=== PATIENT | female | born 1940 | race Caucasian/White ===

== ENCOUNTER → 2016-03-03 | Outpatient (CLI) | payer OTHER ==
[2016-03-03 15:51] LABS: BASOPHILS # (AUTO) 0.03 10*3/UL; BASOPHILS % (AUTO) 0.4 % (0-1); EOSINOPHILS % (AUTO) 2.7 % (0-8); HEMATOCRIT 34.9 % (37.0-47.0); HEMOGLOBIN 11.2 g/dL (12.0-16.0); IMM GRAN % (AUTO) 0.1 % (0-5); IMM GRAN# (AUTO) 0.01 10*3/UL; LYMPHOCYTES # (AUTO) 1.97 10*3/uL; LYMPHOCYTES % (AUTO) 27.7 % (10-50); MEAN CORPUSCULAR HEMOGLOBIN 29.9 PG (27-31); MEAN CORPUSCULAR HGB CONC 32.1 g/dL (33-37); MEAN PLATELET VOLUME 9.6 FL (7.4-12.2); MONOCYTES # (AUTO) 0.74 10*3/UL (0.3-0.8); MONOCYTES % (AUTO) 10.4 % (5-15); NEUTROPHILS # (AUTO) 4.17 10*3/UL; NEUTROPHILS % (AUTO) 58.7 % (50-80); RDW COEFFICIENT OF VARIATION 15.5 % (11.5-14.5); RED BLOOD COUNT 3.75 10^6/uL (4.20-5.40); WHITE BLOOD COUNT 7.11 10^3/uL (4.8-10.8)
[2016-03-03 15:54] LABS: PLATELET MORPHOLOGY COMMENT NORMAL MORPHOLOGY (NORM)
[2016-03-03 16:22] LABS: PROTHROMBIN TIME 27.2 secs (9.7-11.4)
== END ==
LOC: LAB 15:30
PROVIDERS: ATTEND Internal Medicine
DX: I48.2 Chronic atrial fibrillation (principal); D50.9 Iron deficiency anemia, unspecified
CPT/HCPCS: 36415; 82728; 83540; 83550; 85025; 85610

== ENCOUNTER → 2016-04-20 | Outpatient (CLI) | payer OTHER ==
[2016-04-20 10:08] LABS: PROTHROMBIN TIME 31.4 secs (9.7-11.4)
== END ==
LOC: LAB 09:35
PROVIDERS: ATTEND Internal Medicine Cardiovascular Disease
DX: I48.2 Chronic atrial fibrillation (principal)
CPT/HCPCS: 36415; 85610

== ENCOUNTER → 2016-04-27 | Outpatient (CLI) | payer OTHER ==
[2016-04-27 12:17] LABS: BASOPHILS # (AUTO) 0.04 10*3/UL; BASOPHILS % (AUTO) 0.6 % (0-1); EOSINOPHILS % (AUTO) 2.1 % (0-8); HEMATOCRIT 36.3 % (37.0-47.0); HEMOGLOBIN 11.4 g/dL (12.0-16.0); IMM GRAN % (AUTO) 0 % (0-5); IMM GRAN# (AUTO) 0 10*3/UL; LYMPHOCYTES # (AUTO) 1.39 10*3/uL; LYMPHOCYTES % (AUTO) 22.2 % (10-50); MEAN CORPUSCULAR HEMOGLOBIN 29.2 PG (27-31); MEAN CORPUSCULAR HGB CONC 31.4 g/dL (33-37); MEAN PLATELET VOLUME 9.3 FL (7.4-12.2); MONOCYTES # (AUTO) 0.62 10*3/UL (0.3-0.8); MONOCYTES % (AUTO) 9.9 % (5-15); NEUTROPHILS # (AUTO) 4.09 10*3/UL; NEUTROPHILS % (AUTO) 65.2 % (50-80); RDW COEFFICIENT OF VARIATION 14.1 % (11.5-14.5); WHITE BLOOD COUNT 6.27 10^3/uL (4.8-10.8)
[2016-04-27 13:18] LABS: PERCENT IRON SATURATION 17.23 % (14-50)
[2016-04-27 13:29] LABS: PLATELET MORPHOLOGY COMMENT NORMAL MORPHOLOGY (NORM)
== END ==
LOC: LAB 11:55
PROVIDERS: ATTEND Internal Medicine
DX: D50.9 Iron deficiency anemia, unspecified (principal)
CPT/HCPCS: 36415; 82728; 83540; 83550; 85025

== ENCOUNTER → 2016-06-05 | Outpatient (CLI) | payer OTHER | LOC: LAB 15:28 | PROVIDERS: ATTEND Internal Medicine Cardiovascular Disease | DX: I48.2 Chronic atrial fibrillation (principal) | CPT/HCPCS: 36415; 85610 ==

== ENCOUNTER → 2016-06-08 | Outpatient (CLI) | payer OTHER | LOC: MMPC 11:11 | PROVIDERS: ATTEND Internal Medicine | DX: E11.9 Type 2 diabetes mellitus without complications (principal); D64.9 Anemia, unspecified; I48.91 Unspecified atrial fibrillation; E78.5 Hyperlipidemia, unspecified | CPT/HCPCS: 99214; G0463 ==

== ENCOUNTER → 2016-06-17 | Outpatient (CLI) | payer OTHER | LOC: LAB 12:20 | PROVIDERS: ATTEND Internal Medicine Cardiovascular Disease | DX: I48.2 Chronic atrial fibrillation (principal) | CPT/HCPCS: 36415; 85610 ==

== ENCOUNTER → 2016-06-24 | Outpatient (CLI) | payer OTHER ==
[2016-06-24 11:34] LABS: BASOPHILS # (AUTO) 0.03 10*3/UL; BASOPHILS % (AUTO) 0.5 % (0-1); EOSINOPHILS % (AUTO) 3.4 % (0-8); HEMATOCRIT 36.1 % (37.0-47.0); HEMOGLOBIN 11.4 g/dL (12.0-16.0); LYMPHOCYTES # (AUTO) 1.23 10*3/uL; MEAN CORPUSCULAR HEMOGLOBIN 29.5 PG (27-31); MEAN CORPUSCULAR HGB CONC 31.6 g/dL (33-37); MEAN CORPUSCULAR VOLUME 93.3 FL (81-99); MEAN PLATELET VOLUME 9.5 FL (7.4-12.2); MONOCYTES # (AUTO) 0.36 10*3/UL (0.3-0.8); MONOCYTES % (AUTO) 6.1 % (5-15); NEUTROPHILS # (AUTO) 4.05 10*3/UL; NEUTROPHILS % (AUTO) 68.9 % (50-80); RED BLOOD COUNT 3.87 10^6/uL (4.20-5.40)
[2016-06-24 11:35] LABS: PLATELET MORPHOLOGY COMMENT NORMAL MORPHOLOGY (NORM); RBC MORPHOLOGY COMMENT NORMAL MORPHOLOGY (NORM); WBC MORPHOLOGY COMMENT NORMAL MORPHOLOGY (NORM)
== END ==
LOC: LAB 11:12
PROVIDERS: ATTEND Internal Medicine
DX: I48.2 Chronic atrial fibrillation (principal); D50.0 Iron deficiency anemia secondary to blood loss (chronic)
CPT/HCPCS: 36415; 82728; 83540; 83550; 85025; 85610

== ENCOUNTER 2016-07-16 07:52 | Emergency (ER) | payer OTHER ==
[2016-07-16] MEDS ORDERED: ONDANSETRON 4 MG/2 ML VIAL IVP ONE (08:14)
[2016-07-16] MEDS ORDERED: KETOROLAC 15 MG/1 ML VIAL IVP ONE (08:14)
[2016-07-16] MEDS ORDERED: oxyCODONE-ACETAMINOPHEN 5-325 TAB PO ONE (08:14)
[2016-07-16] MEDS ORDERED: NORMAL SALINE 10 ML SYRINGE FLUSH IVP PRN (08:14)
--- NOTE | 2016-07-16 08:21 | PDOC ---
Upper Extremity Problem HPI - General Chief Complaint: Upper Extremity Problem/Injury Stated Complaint: L WRIST PAIN, NO KNOWN INJURY Date Seen by Provider: 07/16/16 Time Seen by Provider: 08:16 - History of Present Illness Initial Comments: Patient's very nice 76-year-old woman who presents to the emergency department with intense left wrist pain. She has some mild swelling in that wrist but is unable to move it really at all secondary to pain. She's had this happen about 3 times in the past and has had a evaluated in the emergency department and was even admitted for wants with no clear sign of infection or no evidence of gout or pseudogout or anything else. She does not think she's ever had her wrist joint aspirated. She states that once her pains under control is usually last about a day or 2 minutes gone and she feels fine after that. She has no idea what has been causing this. She has never seen orthopedics for it. She denies any fever or chills. She believes she's had uric acid taken in the past and has been normal. She would like to have this treated in regards to making her more comfortable does not want to have a lot of other tests or instrumentation as she does not believe there is anything else going to come of it. - Patient Home Medications Home Medications: Home Medications Aspirin [Aspirin EC] 81 mg PO DAILY 02/07/13 Furosemide [Lasix] 1 - 2 tab PO QD PRN #90 tab 08/03/14 Potassium Chloride 1 cap PO QD PRN #90 cap 08/03/14 Digoxin [Digox] 1 tab PO DAILY #90 tab 07/29/15 Diltiazem HCl [Diltiazem 24hr Er] 1 cap PO DAILY #90 cap 07/29/15 Isosorbide Mononitrate [Isosorbide Mononitrate Er] 1 tab PO DAILY #90 tab Lisinopril 1 tab ORAL QD #90 tab 09/23/15 Metoprolol Tartrate 0.5 tab PO BID #90 tab 09/23/15 Pantoprazole Sodium [Protonix] 1 tab PO BID #180 tab 09/23/15 Warfarin Sodium [Coumadin] 5 mg PO DAILY #90 tab 09/23/15 Rosuvastatin Calcium [Crestor] 1 tab ORAL QHS #90 tab 12/19/15 Sertraline HCl 1 tab PO DAILY #90 tab 01/01/16 Blood Sugar Diagnostic [Freestyle Lite Strips] 1 each IN QD #90 strip 06/08/16 Docusate Sodium [Colace] 2 cap PO QD cap 06/08/16 Ferrous Sulfate, Dried [Iron] 3 tab PO QD tab 06/08/16 Lancets 1 each MC QD #90 each 06/08/16 Metformin HCl 1 tab PO BID #180 tab 06/08/16 Ondansetron Odt [Zofran Odt] 8 mg PO Q6H PRN PRN #10 tab.rapdis 07/16/16 Oxycodone HCl 10 mg PO Q4H PRN #20 tab 07/16/16 - Patient Allergies Allergies/Adverse Reactions: Allergies Allergy/AdvReac Type Severity Reaction Status Date / Time sulfamethoxazole AdvReac Intermediate NAUSEA Verified 07/16/16 08:20 [From Bactrim] trimethoprim [From Bactrim] AdvReac Intermediate NAUSEA Verified 07/16/16 08:20 Past Medical History - heen HEENT History: Denies History Cardiovascular History: Hypertension, CAD, Arrhythmia, Hyperlipidemia Additional Cardiovasular History: A FIB Respiratory History: COPD, Sleep Apnea Gastrointestinal History: GERD Genitourinary History: Denies History Endocrine History: Type 2 Diabetes (oral) Musculoskeletal History: Denies History Prosthesis or Implant: No Neurological History: Migraines Blood Disorders: Anemia Psychiatric History: Denies History History of Sexually Transmitted Diseases: No Cancer History: Breast History of MDRO: No History of Other Communicable Diseases: No Alcohol Use: Rarely Substance Use Type: None Previous Surgical History: No Type / Date of Surgery: JAMMIE/ COLONOSCOPY/C SECTION X1/LEFT BREAST LUMPECTOMYC- section Anesthesia Reactions: No Malignant Hyperthermia: No Significant Family History: No pertinent family hx Past Medical History Reviewed: Reviewed - No Changes ROS - Limitations ROS Limitations: No Limitations Constitution: REPORTS: Denies Symptoms Cardiovascular: REPORTS: Denies Cardiac Symptoms Respiratory: REPORTS: Denies Resp Symptoms Upper Extremity Problem Exam - General Appearance General Appearance: POSITIVE: Alert, Cooperative, No Acute Distress - Upper Extremity Upper Extremity: POSITIVE: Other (The left wrist is mildly swollen and is tender right at the distal end of both the radius and ulna where it articulates with the hand bones. She has exquisite tenderness with palpation there is reluctant to flex or extend that wrist at all. There is no evidence of bruising or trauma or any sort of injury there. There is no bony deformity at all.) Upper Ext Problem Progress - Results Reviewed by me Lab Results Reviewed: Yes - Patient's Progress MDM / ED Course: This patient came in with a significantly tender left wrist. She's had this multiple times in the past she's actually been seen by orthopedist in the past for it once was admitted to the hospital for pain control all of these time she had no significant etiology identified. She had had uric acid levels and multiple other studies taken in the past without clear reason for this pain cycle. In the past they have lasted about 2 days and she is needed some narcotic pain medicine to deal with the pain and then they go away. I have offered her here today to try to aspirate this joint or do a more thorough lab workup including sedimentation rate CRP and possibly even inflammatory markers for rheumatoid or other autoimmune diseases but she does not wish to go forward with any aggressive workup. She simply wants some medication to help her feel better and to go home. She is willing to see an orthopedist in the outpatient setting again. Here in the emergency department she was given a dose of IV Toradol and 2 Percocet tablets. She states that her pain is much more tolerable currently. I placed her in a short arm splint and asked her to ice the joint intermittently through the day today and tomorrow. I've asked her to follow-up with orthopedist today if at all possible for consideration of joint aspiration. She is also to follow-up with her primary care provider in the near future as well. Patient Care Time - Estimated PCT Patient Care Time (In Minutes): 35 Vital Signs - Recent Vital Signs Vital Signs: Vital Signs (Last 8 hours) Temp Pulse Resp BP Pulse Ox 07/16/16 07:53 96.8 F 72 16 146/87 97 - VS Reviewed Vital Signs Reviewed: Yes (vitals are benign) Discharge Clinical Impression: Wrist pain, acute Qualifiers: Laterality: left Qualifier Code: (M25.532) Pain in left wrist Discharge Disposition: Discharged to Home Condition: Stable Prescriptions / Orders: Ondansetron Odt [Zofran Odt] 8 mg PO Q6H PRN PRN #10 tab.rapdis PRN Reason: Nausea / Vomiting Oxycodone HCl 10 mg PO Q4H PRN #20 tab PRN Reason: Pain Patient Instructions Given at Discharge: Arthralgia (ED) Additional Instructions: Follow-up with orthopedics today or tomorrow at all possible for evaluation of your wrist Follow-up with primary care provider in the next couple of days as well to discuss your relapsing condition Use pain medication sparingly and avoid driving or any other dangerous situations while you're using pain medication Return here if you have fever or any obvious worsening or any other concerns. Follow Up With: PIETER BAKER [Primary Care Provider] -
[2016-07-16 08:48] LABS: BASOPHILS # (AUTO) 0.03 10*3/UL; BASOPHILS % (AUTO) 0.5 % (0-1); EOSINOPHILS # (AUTO) 0.09 10*3/UL; EOSINOPHILS % (AUTO) 1.4 % (0-8); HEMATOCRIT 35.1 % (37.0-47.0); HEMOGLOBIN 10.9 g/dL (12.0-16.0); LYMPHOCYTES # (AUTO) 1.22 10*3/uL; MEAN CORPUSCULAR HEMOGLOBIN 29.1 PG (27-31); MEAN CORPUSCULAR HGB CONC 31.1 g/dL (33-37); MEAN CORPUSCULAR VOLUME 93.6 FL (81-99); MONOCYTES # (AUTO) 0.64 10*3/UL (0.3-0.8); MONOCYTES % (AUTO) 10.1 % (5-15); NEUTROPHILS # (AUTO) 4.37 10*3/UL; NEUTROPHILS % (AUTO) 68.6 % (50-80); RED BLOOD COUNT 3.75 10^6/uL (4.20-5.40)
[2016-07-16 08:49] VITALS: RESP 16; TEMP 96.8
[2016-07-16 09:12] LABS: PLATELET MORPHOLOGY COMMENT NORMAL MORPHOLOGY (NORM); RBC MORPHOLOGY COMMENT NORMAL MORPHOLOGY (NORM); WBC MORPHOLOGY COMMENT NORMAL MORPHOLOGY (NORM)
== END 2016-07-16 09:28 | disposition home or self-care (01) ==
LOC: ER 07:52
DX: M25.532 Pain in left wrist (principal); E11.9 Type 2 diabetes mellitus without complications; I11.9 Hypertensive heart disease without heart failure; I48.91 Unspecified atrial fibrillation; E78.5 Hyperlipidemia, unspecified; Z79.01 Long term (current) use of anticoagulants
CPT/HCPCS: 85025; 85610; 96374; 96375; 99282; 99283; J1885; J2405

== ENCOUNTER 2016-07-16 21:29 | Emergency (ER) | payer OTHER ==
[2016-07-16] MEDS ORDERED: GABAPENTIN 300 MG CAPSULE PO ONE (21:50)
[2016-07-16] MEDS ORDERED: MORPHINE SULFATE 4 MG/1 ML ONE (21:51)
[2016-07-16] MEDS ORDERED: predniSONE Tab 20 MG TAB PO ONE ×2 (22:16→22:43)
[2016-07-16] MEDS ORDERED: LORazepam 2 MG/1 ML VIAL IM ONE (23:05)
[2016-07-16] MEDS ORDERED: KETOROLAC 30 MG/1 ML VIAL IM ONE (23:06)
[2016-07-16] MEDS ORDERED: KETOROLAC 30 MG/1 ML VIAL ONE (23:14)
[2016-07-16] MEDS ORDERED: LORazepam 2 MG/1 ML VIAL ONE (23:15)
[2016-07-17] MEDS ORDERED: HYDROmorphone 2 MG TABLET PO SCH (00:30)
[2016-07-17] MEDS ORDERED: HYDROmorphone 2 MG TABLET PO ONE (00:36)
--- NOTE | 2016-07-17 00:44 | PDOC ---
Upper Extremity Problem HPI - General Chief Complaint: Upper Extremity Problem/Injury Stated Complaint: LEFT WRIST PAIN Date Seen by Provider: 07/17/16 Time Seen by Provider: 22:00 Source: POSITIVE: Patient Exam Limitations: POSITIVE: No limitations Nurse's Notes Reviewed & Considered: Yes - History of Present Illness Initial Comments: The patient is a 76-year-old female who is evaluated with chief complaint of left wrist pain. She states that she had onset of wrist pain earlier this morning. She was seen here in the emergency department this morning and had normal CBC and an INR measuring 1.79. She has had similar flareups of left- sided wrist pain on 2 other occasions, the last time was in 2013. She previously had been tested for gout and autoimmune problems and no definitive cause was ever determined. She had responded previously to treatment with steroids with improvement after a couple of days. This morning she was given Toradol and Percocet with improvement of pain and was discharged home on oxycodone. She does take Coumadin for atrial fibrillation. She states that this evening her pain returned and has been unrelieved after taking several doses of oxycodone. She denies any fevers or chills, any other associated joint pain or swelling, any other associated symptoms. She denies any recent injury. She is diabetic and has had some occasional numbness and tingling in her hands and feet previously. - Patient Home Medications Home Medications: Home Medications Aspirin [Aspirin EC] 81 mg PO DAILY 02/07/13 Furosemide [Lasix] 1 - 2 tab PO QD PRN #90 tab 08/03/14 Potassium Chloride 1 cap PO QD PRN #90 cap 08/03/14 Digoxin [Digox] 1 tab PO DAILY #90 tab 07/29/15 Diltiazem HCl [Diltiazem 24hr Er] 1 cap PO DAILY #90 cap 07/29/15 Isosorbide Mononitrate [Isosorbide Mononitrate Er] 1 tab PO DAILY #90 tab Lisinopril 1 tab ORAL QD #90 tab 09/23/15 Metoprolol Tartrate 0.5 tab PO BID #90 tab 09/23/15 Pantoprazole Sodium [Protonix] 1 tab PO BID #180 tab 09/23/15 Warfarin Sodium [Coumadin] 5 mg PO DAILY #90 tab 09/23/15 Rosuvastatin Calcium [Crestor] 1 tab ORAL QHS #90 tab 12/19/15 Sertraline HCl 1 tab PO DAILY #90 tab 01/01/16 Blood Sugar Diagnostic [Freestyle Lite Strips] 1 each IN QD #90 strip 06/08/16 Docusate Sodium [Colace] 2 cap PO QD cap 06/08/16 Ferrous Sulfate, Dried [Iron] 3 tab PO QD tab 06/08/16 Lancets 1 each MC QD #90 each 06/08/16 Metformin HCl 1 tab PO BID #180 tab 06/08/16 Ondansetron Odt [Zofran Odt] 8 mg PO Q6H PRN PRN #10 tab.rapdis 07/16/16 Oxycodone HCl 10 mg PO Q4H PRN #20 tab 07/16/16 HYDROmorphone Tab [Dilaudid Tab] 2 mg PO Q4H PRN #10 tablet 07/17/16 predniSONE Tab [Deltasone Tab] 40 mg PO DAILY #10 tab 07/17/16 - Patient Allergies Allergies/Adverse Reactions: Allergies Allergy/AdvReac Type Severity Reaction Status Date / Time sulfamethoxazole AdvReac Intermediate NAUSEA Verified 07/16/16 08:20 [From Bactrim] trimethoprim [From Bactrim] AdvReac Intermediate NAUSEA Verified 07/16/16 08:20 Past Medical History - heen HEENT History: Denies History Cardiovascular History: Hypertension, CAD, Arrhythmia, Hyperlipidemia Additional Cardiovasular History: A FIB Respiratory History: COPD, Sleep Apnea Gastrointestinal History: GERD Genitourinary History: Denies History Endocrine History: Type 2 Diabetes (oral) Musculoskeletal History: Denies History Prosthesis or Implant: No Neurological History: Migraines Blood Disorders: Anemia Psychiatric History: Denies History History of Sexually Transmitted Diseases: No Cancer History: Breast History of MDRO: No History of Other Communicable Diseases: No Alcohol Use: Rarely Substance Use Type: None Previous Surgical History: No Type / Date of Surgery: JAMMIE/ COLONOSCOPY/C SECTION X1/LEFT BREAST LUMPECTOMYC- section Anesthesia Reactions: No Malignant Hyperthermia: No Significant Family History: No pertinent family hx Past Medical History Reviewed: Reviewed - No Changes ROS - Limitations ROS Limitations: No Limitations Constitution: DENIES: Chills, Fever Cardiovascular: REPORTS: Denies Cardiac Symptoms Respiratory: REPORTS: Denies Resp Symptoms Neurological: REPORTS: Tingling (Fingertips) Gastrointestinal: REPORTS: Denies GI Symptoms Musculoskeletal: REPORTS: Denies MS Symptoms Eyes: REPORTS: Denies Symptoms ENT: REPORTS: Denies Symptoms Upper Extremity Problem Exam - General Appearance General Appearance: POSITIVE: Alert, Cooperative, No Acute Distress - Upper Extremity Upper Extremity: POSITIVE: Other (Examination of the left wrist reveals some minimal swelling, no evidence of erythema or bruising, pain with any range of motion at the wrist, normal cap refill and sensation in the fingertips) Vascular: POSITIVE: No Vascular Compromise - Skin Skin: POSITIVE: Normal Color, No Rash - Neuro / Psych Peripheral Neuro Exam: POSITIVE: Sensation Normal, Motor Normal - HEENT HEENT: POSITIVE: Head Inspection Nml - Respiratory / CVS Respiratory / CVS: POSITIVE: No Respiratory Distress, Breath Sounds Normal, Regular Rate & Rhythm, Heart Sounds Normal Upper Ext Problem Progress - Results Reviewed by me Xrays/CTs/US Reviewed by me: Yes Radiology Findings: X-ray of the left wrist reveals some mild degenerative changes with no evidence of acute fracture or any other abnormal findings Lab Results Reviewed: Yes Lab Results:: Laboratory Results 07/16/16 Range/Units 22:35 Uric Acid 6.1 (2.5-7.5) mg/dl C-Reactive Protein 4.5 H (0.0-0.9) mg/dL - Patient's Progress MDM / ED Course: Initially the patient was given Neurontin 300 mg by mouth and morphine 4 mg IM. She did not really have any significant pain relief after approximately an hour. She was still rating her pain a 10 out of 10. She subsequently was given Ativan 1 mg IM and Toradol 30 mg IM. Her pain level had come down to about a 7.4 out of 10. She did have a an elevated CRP of 4.1 with a normal uric acid at 6.1. Rheumatoid factor and AKHIL were sent. At this point is unclear what exactly is causing the pain. It is possible this may represent some type of autoimmune arthropathy versus pseudogout versus neuropathy of some kind. She was started on prednisone and was given a dose of 40 mg here in the emergency room. She will continue 40 mg daily for 5 days. This is what seemed to have helped her in the past it sounds like. She was given Dilaudid as needed for severe breakthrough pain. She is advised return to the emergency room if increased pain, increased swelling, fever, any worsening or change in symptoms. She is advised follow-up with her primary care provider early next week. She was advised that she may require referral to a supervisor boarding. - Consult Counseled: POSITIVE: Patient, Family, RE: Lab Results, RE: Radiology Results, RE : DX, RE: Need for F/U Patient Care Time - Estimated PCT Patient Care Time (In Minutes): 35 Vital Signs - VS Reviewed Vital Signs Reviewed: Yes (written nursing documentation reviewed) Discharge Clinical Impression: Wrist pain, acute Discharge Disposition: Discharged to Home Condition: Stable Prescriptions / Orders: predniSONE Tab [Deltasone Tab] 40 mg PO DAILY #10 tab HYDROmorphone Tab [Dilaudid Tab] 2 mg PO Q4H PRN #10 tablet PRN Reason: Pain Patient Instructions Given at Discharge: Arthralgia (ED) Additional Instructions: The exact cause of your current pain is unclear however may represent some form of pseudogout or some type of autoimmune problem. It is also possible that this could be some type of neuropathy related to your diabetes. Recommend the wrist splint for comfort. Recommend the prednisone 40 mg daily for 5 days which is a strong anti-inflammatory. In addition he will been prescribed allotted 2 mg every 4 hours as needed for pain. Return to the emergency room if increased pain or swelling, fevers or chills, any worsening or change in symptoms. Some specialized blood work to test for autoimmune issues was sent out and should be available early next week. Recommend follow-up with primary care in 5 days. Follow Up With: PIETER BAKER [Primary Care Provider] -
[2016-07-17 02:35] VITALS: RESP 18; TEMP 98
--- NOTE | 2016-07-17 09:07 | DI ---
LEFT WRIST, 07/16/2016 10:06 PM: Clinical History: Left wrist pain. Previous Exam: None at this facility. 3 views are submitted. There is no acute soft tissue, osseous, or joint abnormality. There is osteopo rosis as well as calcification of the triangular fibrocartilage indicating chondrocalcinosis. Reading: No acute fracture or dislocation is present. Chondrocalcinosis.
[2016-07-21 12:37] LABS: RHEUMATOID FACTOR <15 IU/mL (<15)
== END 2016-07-17 00:40 | disposition home or self-care (01) ==
LOC: ER 21:29
DX: M25.532 Pain in left wrist (principal); I11.9 Hypertensive heart disease without heart failure; I25.10 Atherosclerotic heart disease of native coronary artery without angina pectoris; I48.91 Unspecified atrial fibrillation; E11.9 Type 2 diabetes mellitus without complications; Z79.01 Long term (current) use of anticoagulants
CPT/HCPCS: 73110; 84550; 86039; 86140; 86431; 96372; 99283 ×2; J1885; J7512; J2060; J2270

== ENCOUNTER → 2016-07-22 | Outpatient (CLI) | payer OTHER | LOC: MOB LAB 15:46 | PROVIDERS: ATTEND Internal Medicine | DX: M25.532 Pain in left wrist (principal); M25.432 Effusion, left wrist; M11.232 Other chondrocalcinosis, left wrist | CPT/HCPCS: 36415; 85652; 86038 ==

== ENCOUNTER → 2016-07-27 | Outpatient (CLI) | payer OTHER | LOC: MMPC 09:00 | PROVIDERS: ATTEND Internal Medicine | DX: Z79.01 Long term (current) use of anticoagulants (principal); Z51.81 Encounter for therapeutic drug level monitoring; I48.91 Unspecified atrial fibrillation | CPT/HCPCS: 85610 ==

== ENCOUNTER → 2016-08-12 | Outpatient (CLI) | payer OTHER | LOC: MMPC 09:00 | PROVIDERS: ATTEND Internal Medicine | DX: Z79.01 Long term (current) use of anticoagulants (principal); Z51.81 Encounter for therapeutic drug level monitoring; I48.91 Unspecified atrial fibrillation | CPT/HCPCS: 85610 ==

== ENCOUNTER → 2016-09-17 | Outpatient (CLI) | payer OTHER | LOC: MMPC 09:00 | PROVIDERS: ATTEND Internal Medicine | DX: Z79.01 Long term (current) use of anticoagulants (principal); Z51.81 Encounter for therapeutic drug level monitoring; I48.91 Unspecified atrial fibrillation | CPT/HCPCS: 85610 ==

== ENCOUNTER → 2016-10-01 | Outpatient (CLI) | payer OTHER | LOC: MMPC 09:00 | PROVIDERS: ATTEND Internal Medicine | DX: Z79.01 Long term (current) use of anticoagulants (principal); Z51.81 Encounter for therapeutic drug level monitoring; I48.91 Unspecified atrial fibrillation | CPT/HCPCS: 85610 ==